=== PATIENT | female | born 1960 | race Caucasian/White ===

== ENCOUNTER 2022-03-12 14:19 | Observation (INO) ==
[2022-03-12] MEDS ORDERED: ONDANSETRON INJ 2 MG/ML 2 ML VIAL IV STA (14:31)
[2022-03-12] MEDS ORDERED: KETOROLAC TROMETHAMINE 15 MG/ML VIAL IV STA (14:31)
[2022-03-12] MEDS ORDERED: MoRPHine SULFATE 4 MG/ML 1 ML CARP\\VIAL IV PRN (14:31)
[2022-03-12] MEDS ORDERED: dexAMETHasone**PF** 10 MG/ML VIAL IV ONE (14:31)
[2022-03-12] MEDS ORDERED: SODIUM CHLORIDE 0.9% 1000ML 1,000 ML IV ONE (14:31)
[2022-03-12] MEDS ORDERED: MoRPHine SULFATE 10 MG/ML CARP/VIAL IV STA (14:31)
--- NOTE | 2022-03-12 14:36 | Emergency Department Note ---
Impression & Plan Lower back pain, Sciatica, Herniated disc, Failure of outpatient treatment ED Provider Note NAME: JESUS LUGO AGE: 61 SEX: F : 1960 ARRIVES VIA: Ambulance INFORMANT: [Patient][friends] ED PROVIDER(S): [Srinivas Gregory MD] CHIEF COMPLAINT: Back pain HISTORY OF PRESENT ILLNESS: The patient is a 61-year-old female who was seen in the ED 2 days ago for back pain. Lumbar spine films showed some arthritis. Pain was worse with palpation and movement, especially in the lumbar musculature. She was thought likely to be having musculoskeletal pain. She was improved here with treatment and discharged on cyclobenzaprine, meloxicam and oxycodone. The patient states the pain has worsened, especially in the last 24 hours. The pain is severe enough that she is unable to function at home and the pain is now radiating down her right leg. She was brought by ambulance for evaluation. There has been no fever, no fall, no cough or congestion or respiratory complain ts. No urinary burning although, she has a hard time going to the bathroom because of all of her discomfort, she just cannot get in position on the toilet. REVIEW OF SYSTEMS: See HPI for pertinent positives and negatives. A total of ten systems were reviewed and were otherwise negative. PMHx/PSHx: See Below SOCIAL HISTORY: See Below. PHYSICAL EXAM: GENERAL: Patient is in moderate distress from pain. HEENT: No acute trauma, normocephalic atraumatic, mucous membranes moist, no nasal congestion, no scleral icterus. NECK: No stridor, no adenopathy, no meningismus, trachea is midline. LUNGS: Clear to auscultation bilaterally, no wheeze, no rhonchi, breath sounds equal. HEART: Without murmurs gallops or rubs, regular rate and rhythm. ABDOMEN: Soft, nontender, bowel sounds positive, no peritonitis. EXTREMITIES: No cyanosis, full range of motion of all the joints without pain or difficulty, no signs for acute trauma. NEUROLOGIC: Oriented x 3, no acute motor or sensory deficits, no focal weakness. She can lift both legs off the bed. SKIN: No rash, no jaundice, no diaphoresis. Back: Exam was deferred as she was so uncomfortable it was hard for her to turn on her side. DIFFERENTIAL DIAGNOSIS: Musculoskeletal pain, disc herniation, disc disease, nerve impingement, spinal stenosis, sciatica, UTI, fracture, cauda equina syndrome, discitis, abscess, among others. EMERGENCY DEPARTMENT COURSE/PROCEDURES: MEDICAL DECISION MAKING: The patient presents with increasing back pain over the last few days with now pain radiating down her right leg. She has failed outpatient treatment. The patient's CBC is currently pending, her renal panel testing returned unremarkable, no kidney failure. COVID test returned negative. MRI of the lumbar spine does show a right sided disc herniation at L4/L5. The patient received IV Toradol, IV morphine, IV Zofran and IV saline. She was given IV Decadron. She is feeling improved. The patient returns with increasing lower back pain and now pain rating down her right leg. She now describes sciatica. She does have a disc herniation which explains her symptoms. I did speak with Dr. Bashir of pain management. The patient will be hospitalized and likely undergo an injection in the right lumbar area tomorrow. I spoke to the patient about her findings, she understands the need for a hospital stay. I did speak with case management, the on-call hospitalist was consulted. Of note, the patient's urine culture from a few days ago has grown E. coli, this specimen was contaminated. She has no urinary complaints at the present and thus, I do not think treatment for a UTI is necessary. A repeat urinalysis has been ordered. Past Med/Surg History Medical History Lower back pain Social History Smoking Status: Current every day smoker Tobacco Type: Cigarettes Preferred Language: Turkish Feels Safe at Home: Yes Home Meds Previous Rx's Medication Instructions Recorded cyclobenzaprine 10 mg tablet 10 mg PO TID PRN #14 tab 03/10/22 meloxicam 7.5 mg tablet 7.5 mg PO DAILY #7 tab 03/10/22 oxycodone 5 mg tablet 5 mg PO Q6 PRN #12 tab 03/10/22 Results & Data (ED) Vital Signs Vital Signs - 24 hr 03/12/22 14:38 03/12/22 15:32 Temperature 36.7 C Temperature Source Oral Pulse Rate 73 Pulse Rate [Finger] 65 Respiratory Rate 18 18 Blood Pressure 127/58 L Blood Pressure [Left Arm] 127/54 L Blood Pressure Mean 81 Blood Pressure Mean [Left Arm] 78 Pulse Oximetry 98 98 Sepsis Recent Fever Within 48 Hours No Sepsis New/Unexplained Change in Mental Status N/A Sepsis Action Taken by Nursing No Action Required Home Medications Current Medication List: was personally reviewed by me Laboratory Data Attestation: I reviewed the patient's lab results. Result diagrams: 03/12/22 16:21 03/12/22 16:21 Lab Results 03/12/22 03/12/22 03/12/22 Range/Units 16:21 16:21 Unknown WBC Cancelled RBC Cancelled Hgb Cancelled Hct Cancelled MCV Cancelled MCH Cancelled MCHC Cancelled RDW Std Deviation Cancelled RDW Coeff of Chastity Cancelled Plt Count Cancelled MPV Cancelled Immature Gran % (Auto) Cancelled Neut % (Auto) Cancelled Lymph % (Auto) Cancelled [place] % (Auto) Cancelled Eos % (Auto) Cancelled Baso % (Auto) Cancelled Neut # (Auto) Cancelled Lymph # (Auto) Cancelled [place] # (Auto) Cancelled Eos # (Auto) Cancelled Baso # (Auto) Cancelled Immature Gran # (Auto) Cancelled Absolute Nucleated RBC Cancelled Nucleated RBC % (auto) Cancelled Neutrophils % (Manual) Cancelled Band Neutrophils % Cancelled Lymphocytes % (Manual) Cancelled Prolymphocyte % Cancelled Reactive Lymphs % (Man) Cancelled Monocytes % (Manual) Cancelled Eosinophils % (Manual) Cancelled Basophils % (Manual) Cancelled Metamyelocytes % (Man) Cancelled Myelocytes % (Man) Cancelled Promyelocytes % (Man) Cancelled Blast Cells % (Manual) Cancelled Plasma Cell % (Manual) Cancelled Other Cells % Cancelled Nucleated RBC % Cancelled Neutrophils # (Manual) Cancelled Band Neutrophils # Cancelled Total Absolute Neuts Cancelled Lymphocytes # (Manual) Cancelled Prolymphocyte # Cancelled Reactive Lymphs # Cancelled Total Abs Lymphocytes Cancelled Monocytes # (Manual) Cancelled Eosinophils # (Manual) Cancelled Basophils # (Manual) Cancelled Metamyelocytes # (Man) Cancelled Myelocytes # (Manual) Cancelled Promyelocytes # (Man) Cancelled Blast Cells # (Man) Cancelled Plasma Cell # (Manual) Cancelled Other Cells # Cancelled Nucleated RBCs # (Man) Cancelled Hypersegmented Neuts Cancelled Hyposegmented Neuts Cancelled Hypogranular Neuts Cancelled Large Granular Lymphs Cancelled # Lrg Granular Lymphs Cancelled Hairy Cells Cancelled Smudge Cells Cancelled Toxic Granulation Cancelled Toxic Vacuolation Cancelled Dohle Bodies Cancelled [place] Cancelled Platelet Estimate Cancelled Hypogranular Platelets Cancelled Clumped Platelets Cancelled Giant Platelets Cancelled Platelet Satelliting Cancelled RBC Morphology Cancelled Polychromasia Cancelled Hypochromasia Cancelled Poikilocytosis Cancelled Basophilic Stippling Cancelled Anisocytosis Cancelled Microcytosis Cancelled Macrocytosis Cancelled Spherocytes Cancelled Pappenheimer Bodies Cancelled Sickle Cells Cancelled Target Cells Cancelled Tear Drop Cells Cancelled Ovalocytes Cancelled Stomatocytes Cancelled [place] Bodies Cancelled Echinocytes Cancelled Acanthocytes (Spur) Cancelled Rouleaux Cancelled RBC Agglutinates Cancelled Schistocytes Cancelled Sezary Cell Cancelled Sodium 139 (136-145) mmol/L Potassium 4.2 (3.5-5.1) mmol/L Chloride 107 (98-107) mmol/L Carbon Dioxide 27 (21-32) mmol/L Anion Gap 5 (3-11) BUN 18 (6-23) mg/dl Creatinine 0.76 (0.6-1.2) mg/dl Est Cr Clr Drug Dosing 106.3 ml/min Est GFR ( Amer) 98.8 ml/min Est GFR (Non-Af Amer) 85.3 ml/min BUN/Creatinine Ratio 23.7 H (10-20) Glucose 86 (70-99(Fasting)) mg/dl Calcium 9.5 (8.5-10.1) mg/dl SARS-CoV-2, RNA, NAAT NEGATIVE (NEGATIVE) Administered Medications Discontinued Medications Dexamethasone Sodium Phosphate (DexamethasonePf 10 Mg/Ml Vial) 10 mg IV NOW ONE Stop: 03/12/22 14:32 Last Admin: 03/12/22 15:11 Dose: 10 mg Documented by: [id number] Sodium Chloride (Nss 1000ml) 1,000 mls @ 999 mls/hr IV .Q1H1M ONE Stop: 03/12/22 15:31 Last Admin: 03/12/22 15:10 Dose: 999 mls/hr Documented by: [id number] Ketorolac Tromethamine (Ketorolac Tromethamine 15 Mg/Ml Vial) 15 mg IV NOW STA Stop: 03/12/22 14:32 Last Admin: 03/12/22 15:11 Dose: 15 mg Documented by: [id number] Morphine Sulfate (Morphine Sulfate 10 Mg/Ml Carp/Vial) 6 mg IV NOW STA Stop: 03/12/22 14:32 Last Admin: 03/12/22 15:11 Dose: 6 mg Documented by: [id number] Ondansetron HCl (Ondansetron Inj 2 Mg/Ml 2 Ml Vial) 4 mg IV NOW STA Stop: 03/12/22 14:32 Last Admin: 03/12/22 15:11 Dose: 4 mg Documented by: [id number] Imaging Data Radiologist's Impression: Lumbar Spine MRI 03/12/22 14:31 MR lumbar spine wo con CLINICAL HISTORY: back pain and down right leg. COMPARISON: None. TECHNIQUE: Multiplanar multisequence images of the Lumbar Spine were performed without contrast. FINDINGS: There is no evidence for vertebral body fracture. The heights of the vertebral bodies are maintained. The vertebral bodies are in anatomic alignment. Homogeneous marrow signal is seen without evidence for marrow edema or marrow replacement. T12-L1: The disc space height is maintained. There are no focal disc protrusions or extrusions identified. The thecal sac and epidural fat are maintained. The neural foramen are patent bilaterally. There is no evidence for nerve root encroachment. The facet joints are within normal limits. L1-2: The disc space height is maintained. There are no focal disc protrusions or extrusions identified. The thecal sac and epidural fat are maintained. The neural foramen are patent bilaterally. There is no evidence for nerve root encroachment. The facet joints are within normal limits. L2-3: There is mild disc space narrowing with diffuse bulging of the annulus present. There are no focal disc protrusions or extrusions identified. There is minimal flattening of thecal sac anteriorly. There is slight encroachment upon the origins of the right neural foramen when compared to the left. There is no evidence for nerve root encroachment. The facet joints are within normal limits. L3-4: There is mild disc space narrowing with diffuse bulging of the annulus present. There are no focal disc protrusions or extrusions identified. There is flattening of thecal sac anteriorly. The neural foramen are patent bilaterally. There is no evidence for nerve root encroachment. There is mild hypertrophic facet joint disease present bilaterally. L4-5: There is minimal degenerative grade 1/4 spondylolisthesis of L4 on L5 with moderate disc space narrowing present. There is a central to slightly right paracentral disc protrusion/herniation present. There is inferior migration of disc fragment by at least 11 mm behind the L5 vertebral body. The disc projects approximately 7 to 8 mm into the spinal canal impinging upon the thecal sac centrally and slightly laterally to the right. Mild bilateral foraminal encroachment is also present. No focal nerve root encroachment is seen within the neural foramen. Moderate hypertrophic facet joint disease present bilaterally. L5-S1: The disc space height is maintained. There are no focal disc protrusions or extrusions identified. There is mild central bulging of annulus present. Due to the increase amount of epidural fat anterior to the thecal sac at this level, no significant encroachment upon the thecal sac is seen. The neural foramen are patent bilaterally. There is no evidence for nerve root encroachment. There is mild hypertrophic facet joint disease present bilaterally. IMPRESSION: 1. Large central to slightly right paracentral disc protrusion/herniation at L4- 5 with inferior migration of disc fragment encroachment upon the thecal sac centrally and slightly laterally to the right. 2. Bulging annuli are present at L2-3, L3-4 and L5-S1 with no other focal disc protrusion/herniation present. ACT 112: Negative or not required by law. Electronically signed by: Chad Gómez M.D. 03/12/2022 4:24 PM Discharge Plan Visit Data Chief Complaint: Back Injury/Pain ED Provider: Srinivas Gregory Discharge Problem: Lower back pain, Sciatica, Herniated disc, Failure of outpatient treatment Patient Disposition: Admitted As Inpatient Condition: Fair Forms Stand Alone Forms: Eqlim Prescriptions Prescriptions: No Action cyclobenzaprine 10 mg tablet 10 mg PO TID PRN (Reason: muscle spasm) Qty: 14 RF: 0 oxycodone 5 mg tablet 5 mg PO Q6 PRN (Reason: pain) Qty: 12 RF: 0 meloxicam 7.5 mg tablet 7.5 mg PO DAILY Qty: 7 RF: 0 Referrals Referrals: PCP,NO [Primary Care Provider] -
--- NOTE | 2022-03-12 16:27 | Magnetic Resonance Report ---
MR lumbar spine wo con CLINICAL HISTORY: back pain and down right leg. COMPARISON: None. TECHNIQUE: Multiplanar multisequence images of the Lumbar Spine were performed without contrast. FINDINGS: There is no evidence for vertebral body fracture. The heights of the vertebral bodies are maintained. The vertebral bodies are in anatomic alignment. Homogeneous marrow signal is seen without evidence f or marrow edema or marrow replacement. T12-L1: The disc space height is maintained. There are no focal disc protrusions or extrusions ident ified. The thecal sac and epidural fat are maintained. The neural foramen are patent bilaterally. Th ere is no evidence for nerve root encroachment. The facet joints are within normal limits. L1-2: The disc space height is maintained. There are no focal disc protrusions or extrusions identi fied. The thecal sac and epidural fat are maintained. The neural foramen are patent bilaterally. The re is no evidence for nerve root encroachment. The facet joints are within normal limits. L2-3: There is mild disc space narrowing with diffuse bulging of the annulus present. There are no focal disc protrusions or extrusions identified. There is minimal flattening of thecal sac anteriorl y. There is slight encroachment upon the origins of the right neural foramen when compared to the lef t. There is no evidence for nerve root encroachment. The facet joints are within normal limits. L3-4: There is mild disc space narrowing with diffuse bulging of the annulus present. There are no focal disc protrusions or extrusions identified. There is flattening of thecal sac anteriorly. The n eural foramen are patent bilaterally. There is no evidence for nerve root encroachment. There is mild hypertrophic facet joint disease present bilaterally. L4-5: There is minimal degenerative grade 1/4 spondylolisthesis of L4 on L5 with moderate disc space narrowing present. There is a central to slightly right paracentral disc protrusion/herniation pres ent. There is inferior migration of disc fragment by at least 11 mm behind the L5 vertebral body. The disc projects approximately 7 to 8 mm into the spinal canal impinging upon the thecal sac centrally and slightly laterally to the right. Mild bilateral foraminal encroachment is also present. No focal nerve root encroachment is seen within the neural foramen. Moderate hypertrophic facet joint disease present bilaterally. L5-S1: The disc space height is maintained. There are no focal disc protrusions or extrusions ident ified. There is mild central bulging of annulus present. Due to the increase amount of epidural fat anterior to the thecal sac at this level, no significant encroachment upon the thecal sac is seen. Th e neural foramen are patent bilaterally. There is no evidence for nerve root encroachment. There is m ild hypertrophic facet joint disease present bilaterally. IMPRESSION: 1. Large central to slightly right paracentral disc protrusion/herniation at L4-5 with inferior migra tion of disc fragment encroachment upon the thecal sac centrally and slightly laterally to the right. 2. Bulging annuli are present at L2-3, L3-4 and L5-S1 with no other focal disc protrusion/herniation present. ACT 112: Negative or not required by law. Electronically signed by: Chad Gómez M.D. 03/12/2022 4:24 PM
[2022-03-12 17:06] LABS: BUN Creatinine Ratio 23.7 (10-20); Calcium 9.5 mg/dl (8.5-10.1); Creatinine Clr Calc Pharmacy 106.3 ml/min; Est GFR (African American) 98.8 ml/min; Est GFR (Non-African American) 85.3 ml/min; Potassium 4.2 mmol/L (3.5-5.1)
[2022-03-12 17:35] LABS: Basophils # (auto) 0.02 K/uL (0-0.2); Basophils % (auto) 0.2 %; Eosinophils % (auto) 2.2 %; Hematocrit (blood only) 43.9 % (37-47); Hemoglobin 13.8 g/dL (12.0-16.0); Immature Granulocytes # (auto) 0.02 K/uL (0.00-0.02); Immature Granulocytes % (auto) 0.2 %; Lymphocytes # (auto) 1.63 K/uL (1.2-3.4); Lymphocytes % (auto) 18.2 %; Mean Corpuscular Hemoglobin 29.6 pg (25-34); Mean Corpuscular Hgb Conc 31.4 g/dL (32-36); Mean Platelet Volume 11.6 fL (7.4-10.4); Monocytes % (auto) 5.6 %; Neutrophils # (auto) 6.59 K/uL (1.4-6.5); Neutrophils % (auto) 73.6 %; Platelet Count 231 K/uL (130-400); RDW Coefficient of Variation 15.4 % (11.5-14.5); RDW Standard Deviation 52.9 fL (36.4-46.3); Red Blood Count 4.67 M/uL (4.2-5.4); White Blood Count 8.96 K/uL (4.8-10.8)
--- NOTE | 2022-03-12 17:48 | History & Physical Report ---
Date of Service March 12, 2022 Assessment & Plan (1) Herniated disc: Plan: 1. Large central to slightly right paracentral disc protrusion/herniation at L4- 5 with inferior migration of disc fragment encroachment upon the thecal sac centrally and slightly laterally to the right. 2. Bulging annuli are present at L2-3, L3-4 and L5-S1 with no other focal disc protrusion/herniation present. Associated with worsening pain and with sciatic type pain down right side. Failing conservative outpatient medication trial - Decadron already given by EMD - Lidcoaine patches - heat therapy if this helps - Hold cyclobenzaprine as patient does not feel this helped - Tiered pain control - Tylenol, Oxy IR, Morphine - NPO after midnight for evaluation by pain service - PT/OT following evaluion - Chemoprophylaxis for DVT prevention add on following evaluation if patient remains in house (2) HTN (hypertension): Plan: Controlled continue Lisinopril (3) Abnormal urinalysis: Plan: Pansensitive E. COlI asymptotic - resend UA - Add therapy as warranted (4) DMII (diabetes mellitus, type 2): Plan: Hold Jardiance - Dextrose checks QAC/HS with aspart sliding scale CF 30 - hold on carb ratio as NPO tonight - goal < 180mg/dl (5) Hypothyroid: Plan: Continue with Synthroid - follow up with PCP when established History of Present Illness Primary Care Provider: NO PCP 61 YOF with medical history of: HTN, Hypothyroidism, obesity, DMII, tubal ligation. Patient comes to the EMD today for 4 day worsening of lower back pain, with radiation of the pain down her right leg. Patient states that this started off as a dull-ache with some tightness, this started in the lower back and went across the back. She was evaluated for this in the EMD on and at that time without radiation or weakness, conservative treatment with NSAID, muscle relaxer, rest patient was discharged. She returns today with increasing in the back pain and now with more localization to the right lower back. This now is associated with pain that goes into right buttocks and down the outside of her right leg and ankle. This is pain is sharp and constant, worsened by movement. In the EMD the patient had, routine labs performed, MRI of the lumbar spine performed. She was given Toradol, Decadron 10mg IV, and Morphine. Her MRI was interpreted as paracentral disk protrusion with herniation at L4-L5 and bulging annuli at L2-L3, L3-L4 and L5-S1. EMD Dr Gregory did discuss the case and images with Dr. Bashir. He will see the patient in the morning for evaluation of injections for pain control. Will keep the patient NPO. Currently the patient's pain is controlled and she is without spasms. Patient is new to the area and is currently without PCP. She recently moved from [place] at the end of January. She did do some driving and lifting obviously during that time, but denies feeling any injury or overt soreness or pops during that time. She reports that she did have a fall last week, that was more on the front of her body. She is lifting her grandson more frequently. Otherwise that has been her stressors on her back. Last evaluation inthe EMD the patient had UA that was positive for E.COLI and is pansensitive. She denies urinary symptoms, will re-send culture. COVID test on admission is: NEGATIVE Allergies Allergy/AdvReac Type Severity Reaction Status Date / Time No Known Allergies Allergy Unverified 03/12/22 17:54 Home Medications Medication Instructions Recorded Confirmed Type cyclobenzaprine 10 mg tablet 10 mg PO TID PRN #14 tab 03/10/22 Rx oxycodone 5 mg tablet 5 mg PO Q6 PRN #12 tab 03/10/22 Rx atorvastatin 20 mg tablet 20 mg PO DAILY 03/12/22 03/12/22 History empagliflozin 25 mg tablet 25 mg PO DAILY 03/12/22 03/12/22 History (Jardiance) levothyroxine 88 mcg tablet 88 mcg PO DAILY 03/12/22 03/12/22 History (Euthyrox) lisinopril 10 mg tablet 10 mg PO DAILY 03/12/22 03/12/22 History pioglitazone 45 mg tablet 45 mg PO DAILY 03/12/22 03/12/22 History sitagliptin 100 mg tablet (Januvia) 100 mg PO DAILY 03/12/22 03/12/22 History Past Med/Surg History Medical History (Updated 03/12/22 @ 18:22 by DANIEL Chau) DMII (diabetes mellitus, type 2) HTN (hypertension) Hypothyroid Lower back pain Surgical History (Updated 03/12/22 @ 18:11 by DANIEL Chau) H/O tubal ligation Family History (Updated 03/12/22 @ 18:11 by DANIEL Chau) Other Family history non-contributory Social History Smoking Status: Current every day smoker Tobacco Type: Cigarettes Preferred Language: Maltese Feels Safe at Home: Yes Review of Systems Review of Systems: REVIEW OF SYSTEMS: Constitutional: No fever, sweats or chills Eyes: No diplopia, no worsening or blurred vision ENT: normal hearing, no trouble swallowing Respiratory: No cough, sputum, dyspnea at rest or on exertion Cardiovascular: No chest pain, tightness or palpitations Abdomen: No pain, nausea, vomiting, diarrhea or constipation Musculoskeletal: (+) low back pain, right leg pain, NO calf pain, swelling Neurologic: No weakness, numbness/tingling, or balance problems Psychiatric: No anxiety or depression Skin: No rash or itch Physical Exam Physical Exam: PHYSICAL EXAM: General: awake, alert, no apparent distress Head: Normocephalic, atraumatic ENT: PERRL, EOMI, no pharyngeal exudate, mucous membranes moist Neuro: AAO x 3, speech clear and appropriate, strength intact bilaterally 5/5 left upper and left lower, 4/5 to right lower, sensation intact and equal all extremities and dermatomes, no pronator drift Chest: equal rise and fall of the chest, no accessory muscle use, no heaves or thrills, Clear to auscultation, on room air, Cardiac: Regular rate and rhythm, telemetry reviewed, skin warm dry, cap refill <3 seconds, peripheral pulses +2 no JVD, no murmur, no edema GI: NABS x 4 quadrants, soft, nontender to palpation, no rebound, guarding or tenderness : Spontaneously voiding, no pain, no CVA tenderness, MSK: Pain localized to right L4-L5 and S1, pinpoint tenderness at SI joint with pain with palpation into buttocks and along right hip trochanter, normal dermatomes Psych: Normal mood and affect Skin: no rash or erythema Results & Data Results & Data ([facility]) Vital Signs (Past 12 Hours) Vital Signs Temp Pulse Pulse Resp BP BP Pulse Ox 03/12/22 15:32 65 18 127/54 L 98 03/12/22 14:38 36.7 C 73 18 127/58 L 98 Laboratory Results Abnormal lab results 03/12/22 03/12/22 Range/Units 16:21 16:50 MCHC 31.4 L (32-36) g/dL RDW Std Deviation 52.9 H (36.4-46.3) fL RDW Coeff of Chastity 15.4 H (11.5-14.5) % MPV 11.6 H (7.4-10.4) fL Neut # (Auto) 6.59 H (1.4-6.5) K/uL BUN/Creatinine Ratio 23.7 H (10-20) Diagnostic Findings Lumbar Spine MRI 03/12/22 14:31 MR lumbar spine wo con CLINICAL HISTORY: back pain and down right leg. COMPARISON: None. TECHNIQUE: Multiplanar multisequence images of the Lumbar Spine were performed without contrast. FINDINGS: There is no evidence for vertebral body fracture. The heights of the vertebral bodies are maintained. The vertebral bodies are in anatomic alignment. Homogeneous marrow signal is seen without evidence for marrow edema or marrow replacement. T12-L1: The disc space height is maintained. There are no focal disc protrusions or extrusions identified. The thecal sac and epidural fat are maintained. The neural foramen are patent bilaterally. There is no evidence for nerve root encroachment. The facet joints are within normal limits. L1-2: The disc space height is maintained. There are no focal disc protrusions or extrusions identified. The thecal sac and epidural fat are maintained. The neural foramen are patent bilaterally. There is no evidence for nerve root encroachment. The facet joints are within normal limits. L2-3: There is mild disc space narrowing with diffuse bulging of the annulus present. There are no focal disc protrusions or extrusions identified. There is minimal flattening of thecal sac anteriorly. There is slight encroachment upon the origins of the right neural foramen when compared to the left. There is no evidence for nerve root encroachment. The facet joints are within normal limits. L3-4: There is mild disc space narrowing with diffuse bulging of the annulus present. There are no focal disc protrusions or extrusions identified. There is flattening of thecal sac anteriorly. The neural foramen are patent bilaterally. There is no evidence for nerve root encroachment. There is mild hypertrophic facet joint disease present bilaterally. L4-5: There is minimal degenerative grade 1/4 spondylolisthesis of L4 on L5 with moderate disc space narrowing present. There is a central to slightly right paracentral disc protrusion/herniation present. There is inferior migration of disc fragment by at least 11 mm behind the L5 vertebral body. The disc projects approximately 7 to 8 mm into the spinal canal impinging upon the thecal sac centrally and slightly laterally to the right. Mild bilateral foraminal encroachment is also present. No focal nerve root encroachment is seen within the neural foramen. Moderate hypertrophic facet joint disease present bilaterally. L5-S1: The disc space height is maintained. There are no focal disc protrusion s or extrusions identified. There is mild central bulging of annulus present. Due to the increase amount of epidural fat anterior to the thecal sac at this level, no significant encroachment upon the thecal sac is seen. The neural foramen are patent bilaterally. There is no evidence for nerve root encroachment. There is mild hypertrophic facet joint disease present bilaterally. IMPRESSION: 1. Large central to slightly right paracentral disc protrusion/herniation at L4- 5 with inferior migration of disc fragment encroachment upon the thecal sac centrally and slightly laterally to the right. 2. Bulging annuli are present at L2-3, L3-4 and L5-S1 with no other focal disc protrusion/herniation present. ACT 112: Negative or not required by law. Electronically signed by: Chad Gómez M.D. 03/12/2022 4:24 PM LUMBAR SPINE 5 VIEWS- 03/10/2022 11:27 AM CLINICAL HISTORY: Low back pain. FINDINGS: 5 views of the lumbar spine are obtained. No prior studies are available for comparison at the time of dictation. The skeletal structures are osteopenic. There is no radiographic evidence of fracture or malalignment. Vertebral body height is maintained. There is straightening of the lumbar lordosis. There is minimal anterolisthesis at L4-L5. Alignment is otherwise preserved. Anterior and lateral marginal osteophytes are seen throughout. The transverse and spinous processes are intact. There is no evidence of spondylolysis. There is mild multilevel degenerative disc space narrowing. Facet arthropathy is seen in the lower lumbar region. The visualized bony pelvis appears intact. There is a nonobstructed abdominal bowel gas pattern. There is moderate colonic fecal retention. Calcified gallstones are seen in the right upper quadrant. There is atherosclerotic calcification of the abdominal aorta IMPRESSION: 1. No acute bony abnormality is seen involving the lumbar spine. 2. Osteopenia and spondylotic change as above. 3. Cholelithiasis. ECG Additional Comments: not obtained Code Status & VTE Plan Code Status CODE: FULL VTE: SCDS, chemoprophylaxis add on following evaluation PG Care Time/CCT Total # of Minutes Spent Total Time Spent with Patient: Total time spent is greater than 50% in coordination of care (as documented) at patient's floor/unit and/or counseling patient: Coding Level of Care Code INT OBSERVATION CARE 50M LVL 2 Diagnoses Herniated disc M51.26 Spinal region: lumbar HTN (hypertension) I10 DMII (diabetes mellitus, type 2) E11.9 Hypothyroid E03.9 Abnormal urinalysis R82.90 (1) Herniated disc Spinal region: lumbar Qualified Code(s): M51.26 - Other intervertebral disc displacement, lumbar region
[2022-03-12] MEDS ORDERED: ACETAMINOPHEN 325 MG TAB PO PRN (21:23)
[2022-03-12] MEDS ORDERED: CARBOHYDRATES FOR HYPOGLYCEMIA PO PRN (21:23)
[2022-03-12] MEDS ORDERED: INSULIN ASPART PER UNIT SC SCH (21:23)
[2022-03-12] MEDS ORDERED: DEXTROSE 50% 50 ML SYRINGE IV PRN (21:23)
[2022-03-12] MEDS ORDERED: GLUCOSE 10 TABS/TUBE PO PRN (21:23)
[2022-03-12] MEDS ORDERED: GLUCOSE 40% GEL 15 GM TUBE PO PRN (21:23)
[2022-03-12] MEDS ORDERED: CYCLOBENZAPRINE HCL 10 MG TAB PO PRN (21:23)
[2022-03-12] MEDS ORDERED: GLUCAGON FOR INJ 1 MG VIAL SQ PRN (21:23)
[2022-03-12] MEDS: LIDOCAINE 5% 1 PATCH TD SCH (22:04)
[2022-03-12] MEDS ORDERED: POLYETHYLENE (MIRALAX) 17 GM PACK PO PRN (23:08)
[2022-03-13] MEDS ORDERED: Nursing to Pharmacy Communication SCH ×2 (04:00→16:30)
[2022-03-13 06:27] LABS: Basophils # (auto) 0.01 K/uL (0-0.2); Basophils % (auto) 0.1 %; Hematocrit (blood only) 43.3 % (37-47); Hemoglobin 14.1 g/dL (12.0-16.0); Immature Granulocytes # (auto) 0.02 K/uL (0.00-0.02); Immature Granulocytes % (auto) 0.2 %; Lymphocytes # (auto) 1.24 K/uL (1.2-3.4); Lymphocytes % (auto) 9.5 %; Mean Corpuscular Hemoglobin 30.4 pg (25-34); Mean Corpuscular Hgb Conc 32.6 g/dL (32-36); Mean Corpuscular Volume 93.3 fL (80-100); Mean Platelet Volume 11.7 fL (7.4-10.4); Monocytes # (auto) 0.45 K/uL (0.11-0.59); Monocytes % (auto) 3.5 %; Neutrophils # (auto) 11.28 K/uL (1.4-6.5); Neutrophils % (auto) 86.7 %; Nucleated RBC # (auto) 0.02 K/uL (0-0); Nucleated RBC % (auto) 0.2 %; Platelet Count 237 K/uL (130-400); RDW Coefficient of Variation 14.7 % (11.5-14.5); RDW Standard Deviation 50.4 fL (36.4-46.3); Red Blood Count 4.64 M/uL (4.2-5.4)
[2022-03-13] MEDS: LEVOTHYROXINE SODIUM 88 MCG TABLET PO SCH (06:43)
[2022-03-13] MEDS: INSULIN ASPART PER UNIT SC SCH ×4 (06:44→21:10)
[2022-03-13 06:49] LABS: BUN Creatinine Ratio 28.1 (10-20); Calcium 9.2 mg/dl (8.5-10.1); Creatinine Clr Calc Pharmacy 126.8 ml/min; Est GFR (African American) 112.4 ml/min; Potassium 4.3 mmol/L (3.5-5.1)
[2022-03-13] MEDS: lisinopril 10 MG TAB PO SCH (07:53)
[2022-03-13] MEDS: ATORVASTATIN 20 MG TAB PO SCH (07:53)
[2022-03-13] MEDS: MoRPHine SULFATE 4 MG/ML 1 ML CARP\\VIAL IV PRN ×2 (08:23→22:11)
--- NOTE | 2022-03-13 09:15 | Pain Management Consultation ---
Date of Consultation March 13, 2022 Assessment & Plan (1) Lumbar disc herniation with radiculopathy: 1. Patient will be scheduled in the OR today for a right L4-L5, L5-S1 transforaminal epidural steroid injection. Risks and benefits were reviewed with the patient. Procedure was explained to the patient and she is understanding. She would like to proceed with the procedure. 2. Patient will also be initiated on gabapentin 300 mg at bedtime. 3. Continue current medication regimen. 4. Recommend that the patient follow-up in the pain clinic office on an outpatient basis for continued treatment. History of Present Illness Attending Physician: Opal Lindsay MD History of Present Illness This is a 61-year-old female that has been admitted to the [facility] for lumbar radiculopathy. Patient states that the pain started 5 days ago without injury specific injury. She was seen in the emergency department on 03/10/2022 and placed on cyclobenzaprine, meloxicam, and oxycodone. She then returned 2 days later as the pain was not improving and has now been experiencing radicular pain down the right leg. She describes a sharp spasming sensation in the right low back and a burning pain running down the right leg in an L5 distribution to the ankle. She is reporting significant pain that did require admission to the hospital. Pain is rated 8/10 currently. No bowel/bladder incontinence, saddle anesthesia, foot drop, falls. Patient seen with Dr. Bashir Pain Assessment Full Body Front + Back: 1. 2. Allergies Allergy/AdvReac Type Severity Reaction Status Date / Time No Known Allergies Allergy Unverified 03/12/22 17:54 Home Medications Medication Instructions Recorded Confirmed Type cyclobenzaprine 10 mg tablet 10 mg PO TID PRN #14 tab 03/10/22 03/12/22 Rx oxycodone 5 mg tablet 5 mg PO Q6 PRN #12 tab 03/10/22 03/12/22 Rx atorvastatin 20 mg tablet 20 mg PO DAILY 03/12/22 03/12/22 History empagliflozin 25 mg tablet 25 mg PO DAILY 03/12/22 03/12/22 History (Jardiance) levothyroxine 88 mcg tablet 88 mcg PO DAILY 03/12/22 03/12/22 History (Euthyrox) lisinopril 10 mg tablet 10 mg PO DAILY 03/12/22 03/12/22 History pioglitazone 45 mg tablet 45 mg PO DAILY 03/12/22 03/12/22 History sitagliptin 100 mg tablet (Januvia) 100 mg PO DAILY 03/12/22 03/12/22 History Patient History Medical History (Updated 03/13/22 @ 09:14 by Litzy Alegria PA-C) DMII (diabetes mellitus, type 2) HTN (hypertension) Hypothyroid Surgical History H/O tubal ligation Family History Other Family history non-contributory Social History Smoking Status: Current every day smoker Tobacco Type: Cigarettes Cigarettes Per Day: 16-20; Second Hand Exposure: No; Do You Dip or Chew Tobacco: No; Tobacco Cessation Education Requested by Patient: No Hx Alcohol Use: Yes Alcohol type: hard liquor Preferred Language: Burmese Communication Ability: Effective Beliefs That Will Affect Care: None Current Living Situation: Family Other Information That Helps Us Care for You: No Feels Safe at Home: Yes Safety Concerns: Feels Safe At This Time Assistive Devices: None and Glasses Physical Exam Physical Exam: GENERAL: Morbidly obese 61 year old female. Speech and cognition is intact. Mood and affect is appropriate. Appears in moderate pain when moving around hospital bed. HEAD: Normocephalic; atraumatic. EYES: No conjunctival injection. EOM intact. ENT: No external ear discharge or lesions. No rhinorrhea or epistaxis. Moist oral mucosa. NECK: Full ROM; trachea is midline; no TTP; no cervical lymphadenopathy. CHEST: Regular chest respiration and excursion. EXTREMITIES: 5/5 strength of the bilateral lower extremities. Positive straight leg raise on the right, negative on the left. BACK: Loss of lumbar lordosis. There is focal tenderness along the right lumbosacral junction. No SI joint tenderness. No myofascial spasm or trigger points noted. NEURO: CN II-XII grossly intact with no focal deficits noted. Patellar Reflex L +2 R +2 Achilles Reflex L +2 R +2 SKIN: No lesions, erythema, or rashes noted. Results (Pain Clinic) Diagnostic Review MRI Findings: MR lumbar spine wo con CLINICAL HISTORY: back pain and down right leg. COMPARISON: None. TECHNIQUE: Multiplanar multisequence images of the Lumbar Spine were performed without contrast. FINDINGS: There is no evidence for vertebral body fracture. The heights of the vertebral bodies are maintained. The vertebral bodies are in anatomic alignment. Homogeneous marrow signal is seen without evidence for marrow edema or marrow replacement. T12-L1: The disc space height is maintained. There are no focal disc protrusions or extrusions identified. The thecal sac and epidural fat are maintained. The neural foramen are patent bilaterally. There is no evidence for nerve root encroachment. The facet joints are within normal limits. L1-2: The disc space height is maintained. There are no focal disc protrusions or extrusions identified. The thecal sac and epidural fat are maintained. The neural foramen are patent bilaterally. There is no evidence for nerve root encroachment. The facet joints are within normal limits. L2-3: There is mild disc space narrowing with diffuse bulging of the annulus present. There are no focal disc protrusions or extrusions identified. There is minimal flattening of thecal sac anteriorly. There is slight encroachment upon the origins of the right neural foramen when compared to the left. There is no evidence for nerve root encroachment. The facet joints are within normal limits. L3-4: There is mild disc space narrowing with diffuse bulging of the annulus present. There are no focal disc protrusions or extrusions identified. There is flattening of thecal sac anteriorly. The neural foramen are patent bilaterally. There is no evidence for nerve root encroachment. There is mild hypertrophic facet joint disease present bilaterally. L4-5: There is minimal degenerative grade 1/4 spondylolisthesis of L4 on L5 with moderate disc space narrowing present. There is a central to slightly r ight paracentral disc protrusion/herniation present. There is inferior migration of disc fragment by at least 11 mm behind the L5 vertebral body. The disc projects approximately 7 to 8 mm into the spinal canal impinging upon the thecal sac centrally and slightly laterally to the right. Mild bilateral foraminal encroachment is also present. No focal nerve root encroachment is seen within the neural foramen. Moderate hypertrophic facet joint disease present bilaterally. L5-S1: The disc space height is maintained. There are no focal disc protrusions or extrusions identified. There is mild central bulging of annulus present. Due to the increase amount of epidural fat anterior to the thecal sac at this level, no significant encroachment upon the thecal sac is seen. The neural foramen are patent bilaterally. There is no evidence for nerve root encroachment. There is mild hypertrophic facet joint disease present bilaterally. IMPRESSION: 1. Large central to slightly right paracentral disc protrusion/herniation at L4- 5 with inferior migration of disc fragment encroachment upon the thecal sac centrally and slightly laterally to the right. 2. Bulging annuli are present at L2-3, L3-4 and L5-S1 with no other focal disc protrusion/herniation present. ACT 112: Negative or not required by law. Electronically signed by: Chad Gómez M.D. 03/12/2022 4:24 PM Radiology Findings: LUMBAR SPINE 5 VIEWS CLINICAL HISTORY: Low back pain. FINDINGS: 5 views of the lumbar spine are obtained. No prior studies are available for comparison at the time of dictation. The skeletal structures are osteopenic. There is no radiographic evidence of fracture or malalignment. Vertebral body height is maintained. There is straightening of the lumbar lordosis. There is minimal anterolisthesis at L4-L5. Alignment is otherwise preserved. Anterior and lateral marginal osteophytes are seen throughout. The transverse and spinous processes are intact. There is no evidence of spondylolysis. There is mild multilevel degenerative disc space narrowing. Facet arthropathy is seen in the lower lumbar region. The visualized bony pelvis appears intact. There is a nonobstructed abdominal bowel gas pattern. There is moderate colonic fecal retention. Calcified gallstones are seen in the right upper quadrant. There is atherosclerotic calcification of the abdominal aorta IMPRESSION: 1. No acute bony abnormality is seen involving the lumbar spine. 2. Osteopenia and spondylotic change as above. 3. Cholelithiasis. ACT 112: Negative or not required by law. Electronically signed by: Srinivas Valentin M.D. 03/10/2022 11:27 AM
[2022-03-13] MEDS ORDERED: DOCUSATE SODIUM/SENNA 50/8.6MG TAB PO SCH (12:15)
--- NOTE | 2022-03-13 14:18 | History & Physical Bridge Note ---
Date of Service March 13, 2022 History & Physical Bridge Note Heavenly Denny is a 61-year-old female with right lower extremity radicular symptoms that started about a week ago. Symptoms have progressed since they started and currently she experiencing right lower extremity pain with weightbearing and ambulation. Examination demonstrates positive straight leg raising on the right side. Imaging demonstrated right-sided/central L4/L5 disc herniation with a fragment protruding on the right side impinging thecal sac at L5/S1 level. She has been offered a right-sided L4/L5 and L5/S1 transforaminal epidural steroid injection is 1 treatment alternative. Other option discussed with her included doing nothing, physical therapy, IV/oral steroids, and an neuropathic medications as well as surgical evaluation. After deliberation, she elects to proceed with the proposed procedure. Her examination has not changed since this morning and her laboratory studies acceptable to proceed. No contraindications noted. She has remained afebrile. She gives informed consent. Potential risks including infection, nerve injury, bleeding, emergent surgery to treat complications, as well as the relief of symptoms were discussed the patient in detail. Questions were answered.
[2022-03-13] MEDS ORDERED: MIDAZOLAM HCL 1 MG/ML 2ML VIAL ONE (14:49)
[2022-03-13] MEDS ORDERED: fentaNYL citrate 100 MCG/2 ML VIAL ONE (14:49)
--- NOTE | 2022-03-13 14:54 | Anesthesiology Consultation ---
Date of Service March 13, 2022 Assessment & Plan (1) Encounter for pre-operative examination: Chart Review Chart Review: Acceptable Risk for Surgery Consults Requested none ASA ASA3 Proposed Anesthesia Anesthesia Type: MAC Risk / Benefits Reviewed With: PT / POA / Parent / Guardian, Accepts Plan and Informed Consent Obtained History Surgery Operation Date: 03/13/22 11:25 Proposed Procedures p Right L4-L5, L5-S1 Transforaminal Epiduarl Injection - Deondre Bashir MD, FIPP Height/Weight Height: 5 ft 5 in Weight: 129.3 kg Allergies Allergy/AdvReac Type Severity Reaction Status Date / Time No Known Allergies Allergy Unverified 03/12/22 17:54 Medications Home Medications Medication Instructions Recorded Confirmed Last Taken cyclobenzaprine 10 mg tablet 10 mg PO TID PRN #14 tab 03/10/22 03/12/22 Unknown oxycodone 5 mg tablet 5 mg PO Q6 PRN #12 tab 03/10/22 03/12/22 Unknown atorvastatin 20 mg tablet 20 mg PO DAILY 03/12/22 03/12/22 Unknown empagliflozin 25 mg tablet 25 mg PO DAILY 03/12/22 03/12/22 Unknown (Jardiance) levothyroxine 88 mcg tablet 88 mcg PO DAILY 03/12/22 03/12/22 Unknown (Euthyrox) lisinopril 10 mg tablet 10 mg PO DAILY 03/12/22 03/12/22 Unknown pioglitazone 45 mg tablet 45 mg PO DAILY 03/12/22 03/12/22 Unknown sitagliptin 100 mg tablet (Januvia) 100 mg PO DAILY 03/12/22 03/12/22 Unknown Active Medications Generic Name Dose Route Start Last Admin Trade Name Freq PRN Reason Stop Dose Admin Atorvastatin Calcium 20 mg 03/13/22 09:00 03/13/22 07:53 Atorvastatin 20 Mg Tab PO 04/12/22 08:59 Not Given DAILY TRESA Insulin Aspart 0 units 03/13/22 06:00 03/13/22 12:28 Insulin Aspart Per Unit SC 04/12/22 05:59 Not Given Q6 TRESA Levothyroxine Sodium 88 mcg 03/13/22 06:30 03/13/22 06:43 Levothyroxine Sodium 88 Mcg Tablet PO 04/12/22 06:29 88 mcg DAILYBB TRESA Administration Lidocaine 1 patch 03/12/22 21:00 03/12/22 22:04 Lidocaine 5% 1 Patch TD 04/11/22 20:59 1 patch 2100 TRESA Administration Lisinopril 10 mg 03/13/22 09:00 03/13/22 07:53 Lisinopril 10 Mg Tab PO 04/12/22 08:59 Not Given DAILY TRESA Miscellaneous 1 ea 03/13/22 09:00 03/13/22 07:53 Remove Lidoderm Patch N/A 04/12/22 08:59 1 ea DAILY@0900 TRESA Administration Morphine Sulfate 3 mg 03/12/22 21:23 03/13/22 08:23 Morphine Sulfate 4 Mg/Ml 1 Ml Carp\Vial IV 03/26/22 21:22 3 mg Q6 PRN Administration severe pain Senna/Docusate Sodium 1 tab 03/13/22 12:15 03/13/22 12:32 Docusate Sodium/Senna 50/8.6mg Tab PO 04/12/22 12:14 Not Given QAM TRESA NPO Date Last Intake of Fluids: 03/12/22 Time Last Intake of Fluids: 17:00 Date Last Intake of Solids: 03/12/22 Time Last Intake of Solids: 17:00 Past Medical History Medical History DMII (diabetes mellitus, type 2) HTN (hypertension) Hypothyroid Exercise / Class Metabolic Activity II 4-5 Yardwork/Stairs/Walk up hill Past Family History Family History Other Family history non-contributory Past Surgical History Surgical History H/O tubal ligation Past Anesthesia History No Hx of Anesthesia Complications and No Family Hx of Anesthesia Complications History of PONV No Hx of PONV and No Hx of Motion Sickness Social History Smoking Status: Current every day smoker tobacco type: cigarettes Smoking cigarettes per day: 16-20 Do You Dip or Chew Tobacco: No Hx Alcohol Use: Yes Alcohol type: hard liquor alcohol intake frequency: holidays/special occasions only substance use type: marijuana Last Used Substance: Days (ago) Last Used Substance Other:: 6 days ago Physical Exam Vital Signs Last Vital Signs Temp 98.4 F 03/13/22 13:08 Pulse 67 03/13/22 13:08 Resp 18 03/13/22 13:08 BP 137/62 03/13/22 13:08 Pulse Ox 97 03/13/22 13:08 ENMT Mouth: no dentition abnormality Thyromental Distance: > or= 3.5 Finger Breadths Mallampati Class: II Neck normal visual inspection Respiratory normal respiratory effort Auscultation: lungs clear to auscultation bilaterally Cardiovascular Rate/Rhythm: regular rate and regular rhythm Testing Laboratory Results 03/13/22 06:11 03/13/22 06:11 03/13/22 03/13/22 12:09 05:56 POC Glucose 82 105 H
[2022-03-13] MEDS ORDERED: ONDANSETRON INJ 2 MG/ML 2 ML VIAL IV PRN (14:55)
[2022-03-13] MEDS ORDERED: ATROPINE SULFATE 0.1 MG/ML 10ML SYR IV PRN (14:55)
[2022-03-13] MEDS ORDERED: fentaNYL citrate 100 MCG/2 ML VIAL IV PRN (14:55)
[2022-03-13] MEDS ORDERED: ePHEDrine sulfate 50 MG/ML AMP IV PRN (14:55)
[2022-03-13] MEDS ORDERED: PROPOFOL IV EMULSION 10 MG/ML 20 ML VIAL IV ONE (15:06)
--- NOTE | 2022-03-13 15:25 | Operative Report ---
Post Operative Report Pre & Post Diagnosis Operation Date: 03/13/22 11:25 Pre-Op Diagnosis: Herniated disc, Lumbar radiculitis Post-Op Diagnosis: Same I identified the patient and participated in the time-out.: Yes Procedure Operation Date: 03/13/22 11:25 Actual Procedures p Right L4-L5, L5-S1 Transforaminal Epiduarl Injection(Right) - Deondre Bashir MD, HERMAN Surgeon Deondre Bashir MD, HERMAN Shot Fireman None Estimated Blood Loss 0 Findings Consistent with Post-Op Diagnosis Specimens Nonew Drains None Anesthesia Type MAC Disposition Accompanied Patient To Recovery: No Disposition: Recovery Room Description of Procedure Heavenly was brought to operating room #2. She was placed in prone position with a pillow under her belly and the spine table. Prior to proceeding, timeout was conducted. Fluoroscopy was utilized to verify the final needle position prior to the injection. She was given intravenous sedation by members of the anesthesia department. She remained conversant throughout the procedure. Thoracolumbar spine was prepped with DuraPrep followed by Betadine. Sterile drapes applied. A true AP view of the bottom of the L5 vertebra was obtained. C-arm was then angled approximately 25 degrees to the right oblique view. Tip of the superior articular process of S1 vertebra was identified. 3 cc, 1% lidocaine MPF was infiltrated over the site. A 22-gauge, 5 inch spinal needle with a 15 degree curved tip was introduced the coaxial manner of the fluoroscope and advanced until it made contact with the template supraventricular process. It was then "walked off" in the lateral view. No pain or paresthesia elicited. Aspiration was negative. Isovue-M 300 contrast was injected and appropriate epidural spread was noted. A 10-second run of digital subtraction angiography at 8 frames per second was conducted and no vascular uptake was seen. AP was once again verified with appropriate spread of the contrast. 40 mg of Kenalog followed by 2.5 cc of 2% Xylocaine MPF was injected. Needle was then withdrawn. Using same technique, L4/L5 transforaminal epidural steroid injection was performed using same medications and same approach uneventfully. Sterile Band-Aids applied at the site. Patient was taken to recovery room. I attest to the content of the Intraoperative Record and any orders documented therein. Any exceptions are noted below.
--- NOTE | 2022-03-13 15:42 | Pain Management Progress Note ---
Date of Service March 13, 2022 Assessment & Plan (1) Lumbar disc herniation with radiculopathy: Plan: * Right L4-5 and L5/[id number] epidural steroid performed with 80 mg of Kenalog. * If patient is not symptomatic, can be discharged and follow-up with pain management clinic in 1 week to 10-days. * Will follow patient on rounds tomorrow. Present on Admission?: Yes Admission and Anticipated Discharge Date Admission Date: March 12, 2022 Subjective Continues to complain of axial low back pain with right lower extreme radicular pain. Pain increased with ambulation. No change since yesterday. Physical Exam Constitutional: WD/WN, vitals as above Musculoskeletal: Spine: lumbar spine normal to inspection, + lumbar spinal tenderness (Right paraspinous region), + paraspinal tenderness (Right distal lumbar spine right distal lumbar spine region) and + straight leg raise positive tilt present (Right side at 30 degrees); no sciatic notch tenderness and no sacral tenderness Extremities: extremities normal to inspection and strength 5/5 throughout Skin: no rashes, warm and dry no rashes and no lesions Neurologic: patellar DTR's 2+ bilat, sensation intact Psychiatric: A+Ox3, euthymic affect
--- NOTE | 2022-03-13 16:00 | Anesthesiology Progress Note ---
Date of Service March 13, 2022 Anesthesia Post Procedure Vital Signs Vital Signs: Temp Pulse Pulse Resp BP Pulse Ox 03/13/22 15:45 98.2 F 67 17 135/61 96 03/13/22 15:35 72 19 141/66 H 95 03/13/22 15:26 98.6 F 70 14 143/107 H 96 03/13/22 13:08 98.4 F 67 18 137/62 97 03/13/22 05:57 98.2 F 72 16 157/77 H 98 03/12/22 20:50 98.4 F 92 H 16 153/69 H 95 03/12/22 20:00 82 18 132/71 96 03/12/22 18:30 79 18 118/55 L 96 Pain Intensity Right Back: Pain Intensity: 6 Medial Back: Pain Intensity: 6 Transfer of Care Handoff Completed per policy Notes Mental Status: alert / awake / arousable and participated in evaluation Patient Amnestic to Procedure: Yes Nausea / Vomiting: adequately controlled Pain: adequately controlled Airway Patency, RR, SpO2: stable & adequate BP & HR: stable & adequate Hydration State: stable & adequate Anesthetic Complications: no major complications apparent and Pt Satisfied with anesthetic care
--- NOTE | 2022-03-13 18:18 | Hospitalist Progress Note ---
Date of Service March 13, 2022 Assessment & Plan (1) Herniated disc: Plan: Presented with acute intractable pain due to right sided L4-5 HNP with lumbar radiculopathy x5 days Failed conservative outpatient medication trial Was given steroids in the ER MRI lumbar spine showed: 1. Large central to slightly right paracentral disc protrusion/herniation at L4- 5 with inferior migration of disc fragment encroachment upon the thecal sac centrally and slightly laterally to the right. 2. Bulging annuli are present at L2-3, L3-4 and L5-S1 with no other focal disc protrusion/herniation present. Now status post epidural steroid injection at L4-5-S1 by pain management on 03/13 Patient will remain overnight after injection and undergo PT/OT evaluations on 03/14 to ensure that she is able to ambulate and stable for discharge to home Continue lidocaine patches, IV morphine, oxycodone, and acetaminophen as needed Flexeril as needed Pain management has also started gabapentin 300 mg p.o. at bedtime PT/OT consults placed (2) Constipation: Plan: Secondary to opioid use for back pain Add on senna/docusate Continue MiraLAX as needed (3) Asymptomatic bacteriuria: Plan: Urinalysis from ER visit on 03/10 is abnormal but also highly contaminated with epithelial cells She has absolutely no UTI symptoms at all, afebrile, no suprapubic or abdominal pain, no dysuria or hematuria, no urinary frequency urgency She does report chronic issues with recurrent bacterial vaginosis and I did encourage her to follow-up with gynecology in the area for this Urine culture is growing pansensitive E. coli, but will opt to not treat at this time as she is asymptomatic-discussed with patient and she is in full agreement (4) DMII (diabetes mellitus, type 2): Plan: Blood sugars here have been well controlled without any insulin given so far Hold Jardiance from home but can be restarted on discharge Diabetic diet (5) HTN (hypertension): Plan: Controlled -Continue Lisinopril (6) Hypothyroid: Plan: Continue with Synthroid - follow up with PCP when established to follow routine TSH Plan: DVT prophylaxis-SCDs only given steroid injection in the lumbar spine today Disposition-she will remain overnight for PT/OT evaluations tomorrow to ensure she is safe for discharge to home Admission and Anticipated Discharge Date Admission Date: March 12, 2022 Anticipated date of discharge: 03/14/22 Subjective Patient comfortable at rest but has pain with any attempt to walk or stand on the right leg. Pain is in the right lower back and travels all the way down to her ankle and is severe in nature. No weakness of the lower extremities, no numbness or tingling. No bowel or bladder symptoms. Denies chest pains or shortness of breath, no lightheadedness, no abdominal pains or nausea. She has not moved her bowels in 4 days since starting to take opioids given to her in the ER. She is going for an epidural steroid injection today with pain management. Later in the day, I did discuss her care with Dr. Bashir after the procedure which went well. Patient has opted to stay overnight to ensure that her pain is well controlled prior to discharge in the morning. PT/OT consults will be performed then. Review of Systems Review of Systems: All systems reviewed & are unremarkable except as noted in HPI & below Physical Exam Constitutional: WD/WN, vitals as above + obese Eyes: + anicteric sclerae ENMT: external ear and nose normal, oropharynx normal Neck: trachea midline, no thyromegaly Respiratory: normal respiratory effort, lungs clear to auscultation Cardiovascular: RRR, no murmur, no edema Chest (Breasts): Chest: normal inspection of chest Gastrointestinal (Abdomen): normal bowel sounds, soft, nontender, no hepatosplenomegaly Musculoskeletal: Extremities: extremities normal to inspection; no cyanosis and no clubbing Skin: no rashes, warm and dry Neurologic: moves all extremities and awake; no focal motor deficits (5 out of 5 strength in lower extremities throughout) Motor/Sensory: no sensory deficit (Intact to light touch in lower extremities bilaterally) Positive straight leg raise on the right, negative on the left Psychiatric: A+Ox3, euthymic affect Lymphatic: no lymphedema Results & Data Results & Data ([facility]) Vital Signs (Past 12 Hours) Vital Signs Temp Pulse Pulse Resp BP Pulse Ox 03/13/22 16:00 37.0 C 74 16 118/72 96 03/13/22 15:45 36.8 C 67 17 135/61 96 03/13/22 15:35 72 19 141/66 H 95 03/13/22 15:26 37.0 C 70 14 143/107 H 96 03/13/22 13:08 36.9 C 67 18 137/62 97 Laboratory Results 03/13/22 03/13/22 03/13/22 Range/Units 15:29 12:09 06:11 WBC (4.8-10.8) K/uL RBC (4.2-5.4) M/uL Hgb (12.0-16.0) g/dL Hct (37-47) % MCV (80-100) fL MCH (25-34) pg MCHC (32-36) g/dL RDW Std Deviation (36.4-46.3) fL RDW Coeff of Chastity (11.5-14.5) % Plt Count (130-400) K/uL MPV (7.4-10.4) fL Immature Gran % (Auto) % Neut % (Auto) % Lymph % (Auto) % [place] % (Auto) % Eos % (Auto) % Baso % (Auto) % Neut # (Auto) (1.4-6.5) K/uL Lymph # (Auto) (1.2-3.4) K/uL [place] # (Auto) (0.11-0.59) K/uL Eos # (Auto) (0-0.5) K/uL Baso # (Auto) (0-0.2) K/uL Immature Gran # (Auto) (0.00-0.02) K/uL Absolute Nucleated RBC (0-0) K/uL Nucleated RBC % (auto) % Sodium 137 (136-145) mmol/L Potassium 4.3 (3.5-5.1) mmol/L Chloride 108 H (98-107) mmol/L Carbon Dioxide 24 (21-32) mmol/L Anion Gap 5 (3-11) BUN 18 (6-23) mg/dl Creatinine 0.64 (0.6-1.2) mg/dl Est Cr Clr Drug Dosing 126.8 ml/min Est GFR ( Amer) 112.4 ml/min Est GFR (Non-Af Amer) 97.0 ml/min BUN/Creatinine Ratio 28.1 H (10-20) Glucose 116 H (70-99(Fasting)) mg/dl POC Glucose 89 82 (70-99) mg/dl Calcium 9.2 (8.5-10.1) mg/dl 03/13/22 03/13/22 03/12/22 Range/Units 06:11 05:56 21:17 WBC 13.00 H (4.8-10.8) K/uL RBC 4.64 (4.2-5.4) M/uL Hgb 14.1 (12.0-16.0) g/dL Hct 43.3 (37-47) % MCV 93.3 (80-100) fL MCH 30.4 (25-34) pg MCHC 32.6 (32-36) g/dL RDW Std Deviation 50.4 H (36.4-46.3) fL RDW Coeff of Chastity 14.7 H (11.5-14.5) % Plt Count 237 (130-400) K/uL MPV 11.7 H (7.4-10.4) fL Immature Gran % (Auto) 0.2 % Neut % (Auto) 86.7 % Lymph % (Auto) 9.5 % [place] % (Auto) 3.5 % Eos % (Auto) 0.0 % Baso % (Auto) 0.1 % Neut # (Auto) 11.28 H (1.4-6.5) K/uL Lymph # (Auto) 1.24 (1.2-3.4) K/uL [place] # (Auto) 0.45 (0.11-0.59) K/uL Eos # (Auto) 0.00 (0-0.5) K/uL Baso # (Auto) 0.01 (0-0.2) K/uL Immature Gran # (Auto) 0.02 (0.00-0.02) K/uL Absolute Nucleated RBC 0.02 H (0-0) K/uL Nucleated RBC % (auto) 0.2 % Sodium (136-145) mmol/L Potassium (3.5-5.1) mmol/L Chloride (98-107) mmol/L Carbon Dioxide (21-32) mmol/L Anion Gap (3-11) BUN (6-23) mg/dl Creatinine (0.6-1.2) mg/dl Est Cr Clr Drug Dosing ml/min Est GFR ( Amer) ml/min Est GFR (Non-Af Amer) ml/min BUN/Creatinine Ratio (10-20) Glucose (70-99(Fasting)) mg/dl POC Glucose 105 H 243 H (70-99) mg/dl Calcium (8.5-10.1) mg/dl PG Care Time/CCT Total # of Minutes Spent Total Time Spent with Patient: Total time spent is greater than 50% in coordination of care (as documented) at patient's floor/unit and/or counseling patient: Coding Level of Care Code 40780 Subseq Obs Care Lvl 2 Diagnoses Herniated disc M51.26 Spinal region: lumbar HTN (hypertension) I10 DMII (diabetes mellitus, type 2) E11.9 Hypothyroid E03.9 Constipation K59.00 Asymptomatic bacteriuria R82.71 (1) Herniated disc Spinal region: lumbar Qualified Code(s): M51.26 - Other intervertebral disc displacement, lumbar region
[2022-03-13] MEDS: LIDOCAINE 5% 1 PATCH TD SCH (20:03)
[2022-03-13] MEDS ORDERED: GABAPENTIN 300 MG CAP PO SCH (21:00)
[2022-03-14] MEDS: oxyCODONE HCL IR 5 MG TAB (IMMEDIATE RELEASE) PO PRN ×2 (02:38→10:26)
[2022-03-14] MEDS: LEVOTHYROXINE SODIUM 88 MCG TABLET PO SCH (05:55)
[2022-03-14] MEDS: INSULIN ASPART PER UNIT SC SCH (08:58)
[2022-03-14] MEDS: ATORVASTATIN 20 MG TAB PO SCH (09:03)
[2022-03-14] MEDS: lisinopril 10 MG TAB PO SCH (09:03)
--- NOTE | 2022-03-14 10:27 | Pain Management Progress Note ---
Date of Service March 14, 2022 Assessment & Plan (1) Lumbar disc herniation with radiculopathy: Plan: 1. Patient reports significant pain relief from the right L4-L5, L5-S1 transforaminal epidural steroid injection that was performed yesterday. This can be repeated if necessary. 2. Gabapentin was increased to 300 mg 3 times daily. 3. Recommend physical therapy 4. Patient will be scheduled for an appointment with our office to become established on 03/23/2022 at 10 AM with myself. Admission and Anticipated Discharge Date Admission Date: March 12, 2022 Subjective Mrs. Denny is reporting significant pain relief status post right L4-L5, L5-S1 transforaminal epidural steroid injection that was performed by Dr. Bashir yesterday in the OR setting. She is reporting approximately 80% pain relief from the procedure. She states that the radicular symptoms down the right leg have resolved since the injection. There is a tiredness aching sensation along the low back when she is standing and walking. She did receive gabapentin 300 mg last night without any side effects. Patient did utilize 1 oxycodone pill and 1 IV morphine injection overnight. She denies any fevers, chills, leg weakness. Patient seen with Dr. Bashir Physical Exam Physical Exam: GENERAL: This is a 61 year old female in no acute distress. HEAD/FACE: Normocephalic and atraumatic. EYES: No drainage or conjunctival injection. ENT: Nose without bleeding or discharge. Oral mucosa moist. NECK: Full ROM without apparent pain. No swelling or masses noted. RESPIRATORY: Patient with unlabored breathing. No signs of respiratory distress. CHEST/AXILLA: Chest movement symmetrical. No deformities noted. BACK: Moves without difficulty SKIN: No erythema, edema, or drainage of the injection site. MS/EXTREMITY: No swelling, no deformities. Moving extremities appropriately. NEURO: Alert and appears oriented. Speech is fluent. Cranial Nerves are grossly intact. PSYCH: Alert, pleasant, affect is calm
--- NOTE | 2022-03-14 11:47 | Discharge Summary ---
Date of Service March 14, 2022 Admission HPI Per Admitting Provider 61 YOF with medical history of: HTN, Hypothyroidism, obesity, DMII, tubal ligation. Patient comes to the EMD today for 4 day worsening of lower back pain, with radiation of the pain down her right leg. Patient states that this started off as a dull-ache with some tightness, this started in the lower back and went across the back. She was evaluated for this in the EMD on and at that time without radiation or weakness, conservative treatment with NSAID, muscle relaxer, rest patient was discharged. She returns today with increasing in the back pain and now with more localization to the right lower back. This now is associated with pain that goes into right buttocks and down the outside of her right leg and ankle. This is pain is sharp and constant, worsened by movement. In the EMD the patient had, routine labs performed, MRI of the lumbar spine performed. She was given Toradol, Decadron 10mg IV, and Morphine. Her MRI was interpreted as paracentral disk protrusion with herniation at L4-L5 and bulging annuli at L2-L3, L3-L4 and L5-S1. EMD Dr Gregory did discuss the case and images with Dr. Bashir. He will see the patient in the morning for evaluation of injections for pain control. Will keep the patient NPO. Currently the patient's pain is controlled and she is without spasms. Patient is new to the area and is currently without PCP. She recently moved from [place] at the end of January. She did do some driving and lifting obviously during that time, but denies feeling any injury or overt soreness or pops during that time. She reports that she did have a fall last week, that was more on the front of her body. She is lifting her grandson more frequently. Otherwise that has been her stressors on her back. Last evaluation inthe EMD the patient had UA that was positive for E.COLI and is pansensitive. She denies urinary symptoms, will re-send culture. COVID test on admission is: NEGATIVE Discharge Data Allergies Allergy/AdvReac Type Severity Reaction Status Date / Time No Known Allergies Allergy Unverified 03/12/22 17:54 Consultations 03/12/22 17:18 ED Decision to Admit Stat 03/12/22 21:23 Consult Pain Management Routine Procedures Performed Operation Date: 03/13/22 11:25 Actual Procedures p Right L4-L5, L5-S1 Transforaminal Epiduarl Injection(Right) - Deondre Bashir MD, FIPP Ordered Studies 03/12/22 14:31 MR lumbar spine wo con Stat 03/13/22 FL fluoro for pain procedure Routine Hospital Course (1) Herniated disc: Presented with acute intractable pain due to right sided L4-5 HNP with lumbar radiculopathy x5 days Failed conservative outpatient medication trial Was given steroids in the ER MRI lumbar spine showed: 1. Large central to slightly right paracentral disc protrusion/herniation at L4- 5 with inferior migration of disc fragment encroachment upon the thecal sac centrally and slightly laterally to the right. 2. Bulging annuli are present at L2-3, L3-4 and L5-S1 with no other focal disc protrusion/herniation present. Now status post epidural steroid injection at L4-5-S1 by pain management on 03/13 Patient will remain overnight after injection and undergo PT/OT evaluations on 03/14 to ensure that she is able to ambulate and stable for discharge to home Continue lidocaine patches, IV morphine, oxycodone, and acetaminophen as needed Flexeril as needed Pain management has also started gabapentin 300 mg p.o. at bedtime PT/OT consults placed (2) Constipation: Secondary to opioid use for back pain Add on senna/docusate Continue MiraLAX as needed (3) Asymptomatic bacteriuria: Urinalysis from ER visit on 03/10 is abnormal but also highly contaminated with epithelial cells She has absolutely no UTI symptoms at all, afebrile, no suprapubic or abdominal pain, no dysuria or hematuria, no urinary frequency urgency She does report chronic issues with recurrent bacterial vaginosis and I did encourage her to follow-up with gynecology in the area for this Urine culture is growing pansensitive E. coli, but will opt to not treat at this time as she is asymptomatic-discussed with patient and she is in full agreement (4) DMII (diabetes mellitus, type 2): Blood sugars here have been well controlled without any insulin given so far Hold Jardiance from home but can be restarted on discharge Diabetic diet (5) HTN (hypertension): Controlled -Continue Lisinopril (6) Hypothyroid: Continue with Synthroid - follow up with PCP when established to follow routine TSH DVT prophylaxis-SCDs only given steroid injection in the lumbar spine today Disposition-she will remain overnight for PT/OT evaluations tomorrow to ensure she is safe for discharge to home Discharge Plan Discharge Items Patient Disposition: Home - Self-Care Reason For Visit: BACK PAIN, HERNIATED DISC Discharge Diagnosis: 1. Lumbar herniated disc at L4-L5 causing severe right leg pain & back pain 2. Steroid injection of lumbar spine Activity: As commented below Activity Comment: No strenuous activities; light walks & activities only Lifting: No more than 10 pounds Exercise/Sports: Wait until after follow-up appointment Driving/Machine Use: No driving a car if taking narcotic pain killer medication Non-emergency contact: Primary Care Provider and Specialist Call non-emergency contact if: you have any medication questions, your symptoms worsen, your pain is not controlled, your pain is worsening, your pain is unusual for you, your pain is concerning for you and you have a fever Follow-up/Referrals: Litzy Alegria PA-C [Physician Strip Presser] - 03/23/22 9:00 am ([facility]) PCP,NO [Primary Care Provider] - (1-2 weeks with the primary care provider of your choosing ) Diet: Carb Consistent or DM2 Addtl Attending Provider Instructions: Stoney Vance were admitted to [facility] due to severe back and right leg pain from a herniated disc in your lumbar spine. MRI of the lumbar spine showed considerable degeneration/arthritis of the back at multiple levels but the culprit problem was from a large herniated disc at L4-L5. This disc herniation was pushing on the L5 nerve causing severe pain in the right leg. Dr Deondre Bashir from [facility] saw you in consult and performed an epidural steroid injection at L4-L5 and L5-S1 to try and help with your pain. You tolerated the injection well. Recommendations - 1. follow-up with the pain management center on 03/23/22 as scheduled for a recheck of your back. Since you are just moving to the area please establish care with a new primary care physician/provider for ongoing routine care of your diabetes and other medical problems. If you need help securing a new provider please let us know and we can assist you in obtaining one. 2. pain medication regimen - you may take a combination of the following medications for your pain - * oxycodone 5mg every 6 hours as needed for pain * this is a narcotic pain killer medication * this medication can make you sleepy/drowsy; thus, do NOT drink alcohol while taking oxycodone; do NOT drive a car while taking this medication * oxycodone can also make you constipated * refill sent to pharmacy for you * gabapentin 300mg three times daily scheduled; this is to reduce the nerve pain you are feeling in the right leg; prescription sent to pharmacy for you * occasionally some people have swelling/edema of their ankles as a result of this medication * some people have weight gain with this medication as well * cyclobenzaprine 10mg every 8 hours as needed for muscle pain/spasm * cyclobenzaprine is a muscle relaxer medication * this medication can also make you very sleepy * do not drink alcohol or drive a car if you are taking this medication * try to avoid taking oxycodone and cyclobenzaprine together as both meds taken in concert can cause significant sedation/drowsiness * if desired you can also try [id number] diclofenac gel -- 4 grams up to 4 times a day as needed/desired for back or leg pain; simply rub the 4 grams into the location of your choosing; this is a topical anti-inflammatory medication * [id number]-jri-[id number] tylenol 1000mg three times daily (scheduled, or as needed) * ybtz-bbg-[id number] "salonpas" topical numbing medication; follow directions on the package insert 3. for prevention & treatment of constipation while on the oxycodone (you may need to take 1 or both medications) - * Senokot 2 tabs once daily and/or * Miralax 1 serving once or twice daily Both products are dffk-hwk-laydrvq. 4. if you develop any symptoms of bladder/urinary tract infection such as worsening urinary incontinence (leaking of urine, accidents), painful urination, foul odor of urine, bladder pain, urgency (racing to go to the bathroom), fever over 100 degrees, etc - please start taking the following antibiotic - * cephalexin 500mg twice daily x 7 days; written prescription provided to keep on stand-by 5. resume your usual diabetes and blood pressure medications 6. do not start outpatient physical therapy until after your appointment with the pain management clinic Return to [facility] if - * you have fevers over 100 degrees * you have severe back or right leg pain that is not responding to the above regimen of medications * you have worsening weakness of either leg or difficulty walking * you are having falls * you are having incontinence of bowel or bladder (lack of control of your stools or urine) * you have severe numbness of the buttock region, legs, etc * any other concerns It was our pleasure to care for you at [facility]! Continue to feel better, Dr Gamez Pending Studies at Discharge: No Stand-Alone Forms: My [facility], Smoking Cessation Medications and DC Order Prescriptions: New gabapentin 300 mg Capsule 300 mg PO TID Qty: 90 RF: 1 acetaminophen [Tylenol Extra Strength] 500 mg tablet 1,000 mg PO TID Qty: 60 RF: 0 cephalexin 500 mg capsule 500 mg PO BID 7 Days Qty: 14 RF: 0 Continued cyclobenzaprine 10 mg tablet 10 mg PO TID PRN (Reason: muscle spasm) Qty: 14 RF: 0 atorvastatin 20 mg tablet 20 mg PO DAILY RF: 0 pioglitazone 45 mg tablet 45 mg PO DAILY RF: 0 levothyroxine [Euthyrox] 88 mcg tablet 88 mcg PO DAILY RF: 0 lisinopril 10 mg tablet 10 mg PO DAILY RF: 0 Januvia 100 mg tablet 100 mg PO DAILY RF: 0 Jardiance 25 mg tablet 25 mg PO DAILY RF: 0 oxycodone 5 mg tablet 5 mg PO Q6 PRN (Reason: pain) Qty: 20 RF: 0 Discharge Orders: Discharge Order (Routine); Ordered 03/14/22 Ordered By: Samy Robin/Other Patient Handouts: Back Safety: Bending, Back Safety: Sleeping Positions, ED Herniated Intervertebral Disk Admission Data Admit Date/Time: 03/12/22 18:24 Attending Provider: Samy Gamez Admit Provider: Jacob Ham Primary Care Provider: PCP,NO Other Providers: Jacob Ham ; Deondre Bashir Coding Diagnoses Herniated disc M51.26 Spinal region: lumbar Constipation K59.00 Asymptomatic bacteriuria R82.71 DMII (diabetes mellitus, type 2) E11.9 HTN (hypertension) I10 Hypothyroid E03.9
[2022-03-14] MEDS ORDERED: GABAPENTIN 300 MG CAP PO SCH (14:00)
== END 2022-03-14 12:50 | disposition home or self-care (01) ==
LOC: 3E 14:19 → ED 14:19 → SUATTDRO 18:24 → 3E 20:27